=== PATIENT | male | born 1950 ===

== ENCOUNTER → 2018-09-18 | Outpatient (CLI) | payer MEDICARE | LOC: C.CTH 12:00 | DX: C34.90 Malignant neoplasm of unspecified part of unspecified bronchus or lung (principal) ==

== ENCOUNTER 2018-10-07 09:27 | Day surgery (SDC) | payer MEDICARE ==
[2018-10-06 13:22] VITALS: BMI 17.2
[2018-10-07 10:10] LABS: BLOOD UREA NITROGEN 16 mg/dL (9-20); CALCIUM 9.4 mg/dl (8.6-10.4); GFR NON-AFRICAN AMERICAN > 60
[2018-10-07] MEDS ORDERED: Midazolam 2 MG/2 ML VIAL ONE (10:50)
--- NOTE | 2018-10-07 11:10 | CP.SDSHP ---
Same Day Surgery H & P - History Proposed Procedure: CT guided lung mass biopsy Pre-Op Diagnosis: Lung cancer - Allergies Allergies: Allergies No Known Allergies Allergy (Verified 10/06/18 13:22) - Physical Exam Mental Status: Alert & Oriented x3 - Impression Impression: Pt with a large right lung mass. Plan CT guided core biopsy. Informed consent and risk of pneumothorax explained to the patient. Pt. Evaluated Today:Candidate for Anesthesia & Procedure: Yes (ASA 3 Malampati 3) - Date & Time Date: 10/07/18 Time: 10:45 Short Stay Discharge - Short Stay Discharge Admitting Diagnosis/Reason for Visit: MALIGNANT NEOPLASM OF UNSP PART OF UNSP BRONCHUS O Disposition: HOME/ ROUTINE Referrals: Freddy Cole Jr., MD [Primary Care Provider] -
--- NOTE | 2018-10-07 11:11 | PCM.SURG1 ---
Surgeon's Initial Post Op Note - Surgeon's Notes Surgeon: Hesham Bates MD Sampler First: NONE Type of Anesthesia: IV Sedation Pre-Operative Diagnosis: Lung cancer Operative Findings: CT showed infiltrative large right hilar mass. Post-Operative Diagnosis: Lung cancer Operation Performed: CT guided right lung mass biopsy. Two 20-gauge core specimen obtained. Specimen/Specimens Removed: 20-gauge core x 2 Estimated Blood Loss: EBL {In ML}: 0 Blood Products Given: N/A Drains Used: No Drains Post-Op Condition: Fair Date of Surgery/Procedure: 10/07/18 Time of Surgery/Procedure: 11:10
--- NOTE | 2018-10-07 11:22 | CT ---
PROCEDURE: Date of procedure: 10/07/2018 Procedure: 1. CT-guided lung mass biopsy, CPT [address] Guidance for biopsy, [address] Radiation: 450.56 MGy-cm Medications: The patient was sedated by anesthesiologist along with physiologic monitoring. HISTORY: Right hilar mass TECHNIQUE: Following informed consent, the Pt's chest was marked. The Pt was placed supine on the CT table and procedure time out was performed. A noncontrast CT scan was performed. Noncontrast CT scan confirmed the presence of a large right hilar mass. A skin localizer was placed on the patient's right chest and a repeat CT scan was performed. The skin was marked, prepped, and draped in the usual sterile fashion. After the skin was anesthetized with lidocaine and the patient sedated by the anesthesiologist, a 20 gauge core needle was advanced percutaneously under direct CT guidance into the mass. Upon confirmation of needle position, two 20-gauge core specimens were obtained and sent for routine pathology. The needle was removed and a xeroform dressing was applied. A post biopsy CT scan showed a tiny pneumothorax. IMPRESSION: CT guided core biopsy right lung mass. Less than 2 percent pneumothorax following mass biopsy. Follow-up chest x-ray ordered.
--- NOTE | 2018-10-07 14:12 | RAD ---
Date of service: 10/07/2018 HISTORY: Status post right lung mass biopsy COMPARISON: None available. TECHNIQUE: 1 view obtained. FINDINGS: LUNGS: Medial right apical patchy densities appreciated extending down to the level of the right suprahilar space region with no airspace disease identified at the left. Overall pattern reflects likely post biopsy changes intermixed with masslike infiltrate at the medial right apex. PLEURA: No significant pleural effusion identified, no pneumothorax apparent. CARDIOVASCULAR: Nonaneurysmal abdominal aortic calcific atherosclerotic changes are identified. Normal cardiac size. No pulmonary vascular congestion. OSSEOUS STRUCTURES: No significant abnormalities. VISUALIZED UPPER ABDOMEN: Normal. OTHER FINDINGS: None. IMPRESSION: No pneumothorax bilaterally. Medially medial right upper lobe masslike density appreciated likely reflecting postoperative change with underlying lesion likely unchanged.
--- NOTE | 2018-10-11 20:27 | CARD ---
APPROVED REPORT Date of service: 10/07/2018 EKG Measurement Heart [id number] <Conclusion> Normal sinus rhythm Septal infarct, age undetermined Abnormal ECG
== END 2018-10-07 14:39 | disposition home or self-care (01) ==
LOC: C.SPRAD 09:27
PROVIDERS: ATTEND Radiology Vascular & Interventional Radiology
DX: C34.01 Malignant neoplasm of right main bronchus (principal)
CPT/HCPCS: 32405; 36415; 71045; 77012; 80048; 88305; 88342; 93005; J2250; J3010

== ENCOUNTER 2018-11-12 09:58 | Outpatient (CLI) | payer MEDICARE | END 2018-11-12 09:59 | disposition home or self-care (01) | LOC: C.MRIC 09:58 ==